=== PATIENT | female | born 1985 | race African-American/Black ===

== ENCOUNTER 2016-12-10 02:57 | Inpatient (IN) | payer SELFPAY ==
[~2016-12-10] VITALS: Ht 167.6 cm; Wt 66.5 kg
--- NOTE | 2016-12-10 03:00 | NUR ---
PT BIBA#39. Pt found wondering the streets acting bizzare. pt is slurring her words, no trauma noted, pt is not speaking purposeful sentences at this time. no distress noted. pt gowned, palced on cardiac cath rn. skin warm and dry, rr even an dunalbored. awaiting orders from provider, will continue to monitor
--- NOTE | 2016-12-10 03:05 | NUR ---
MD Merrill at bed side for eval
--- NOTE | 2016-12-10 03:10 | NUR ---
in and out deidre do per order md cruz
[2016-12-10] MEDS ORDERED: IV SET PRIMARY 1 EA INFUS.SET MC ONE (03:25)
[2016-12-10] MEDS ORDERED: IV NS 0.9% 1,000 ML ONE (03:25)
[2016-12-10] MEDS ORDERED: IV NS 0.9% 1,000 ML BAG IV ONE (03:30)
[2016-12-10 03:31] LABS: BASOPHILS % (AUTO) 0.4 % (0.0-2.0); EOSINOPHILS # (AUTO) 0.1 /CMM (0.0-0.7); EOSINOPHILS % (AUTO) 1.2 % (0.0-6.0); HEMATOCRIT 36 % (33-45); HEMOGLOBIN 11.7 g/dL (11.5-14.8); LYMPHOCYTES # (AUTO) 1.4 /CMM (0.8-4.8); LYMPHOCYTES % (AUTO) 27.5 % (20.0-44.0); MEAN CORPUSCULAR HEMOGLOBIN 28 PG (26.0-33.0); MEAN CORPUSCULAR HGB CONC 33 g/dl (31.0-36.0); MEAN CORPUSCULAR VOLUME 86 fL (82-100); MONOCYTES # (AUTO) 0.6 /CMM (0.1-1.30); MONOCYTES % (AUTO) 12.5 % (2.0-12.0); NEUTROPHILS # (AUTO) 2.9 /CMM (1.8-8.9); NEUTROPHILS % (AUTO) 58.4 % (43.0-81.0); PLATELET COUNT (AUTO) 241 /CMM (150-450); RDW COEFFICIENT OF VARIATION 16.1 (11.5-15.0); RED BLOOD CELL COUNT(AUTO) 4.16 MIL/uL (4.0-5.2); WHITE BLOOD COUNT (AUTO) 4.9 K/uL (4.3-11.0)
[2016-12-10 03:35] LABS: APPEARANCE,URINE CLOUDY (CLEAR); BILIRUBIN,URINE NEGATIVE (NEGATIVE); BLOOD, URINE TRACE-INTA Ery/uL (NEGATIVE); COLOR,URINE YELLOW (YELLOW); KETONES,URINE NEGATIVE (NEGATIVE); LEUKOCYTE ESTERASE ,URINE NEGATIVE (NEGATIVE); NITRITE, URINE NEGATIVE (NEGATIVE); PH,URINE 6.5 (5.0-8.0); PROTEIN,URINE NEGATIVE (NEGATIVE); UGLUCOSE NEGATIVE (NEGATIVE); UROBILINOGEN,URINE 0.2 EU/dL (0.2)
[2016-12-10 03:43] LABS: BACTERIA,URINE 1+ /HPF (None Seen); SQUAMOUS EPITHELIAL CELL,UR Many /HPF (None Seen); URINE AMORPHOUS URATE Moderate /HPF (None Seen); WBC,URINE 0-2 /HPF (0-3)
[2016-12-10 03:51] LABS: INR 1.09 (0.87-1.13); PROTHROMBIN TIME 11.7 SECS (9.5-12.7)
--- NOTE | 2016-12-10 03:54 | NUR ---
pt resting in er bed, nad noted, skin warm and dry. pt is on sed special education teacher. will continue to monitor
[2016-12-10 04:02] LABS: ALANINE AMINOTRANSFERASE 29 U/L (12-78); ALBUMIN 3.4 g/dL (3.4-5.0); ALCOHOL, BLOOD < 3 mg/dL (0-0); ALKALINE PHOSPHATASE 60 U/L (46-116); ASPARTATE AMINOTRANSFERASE 36 U/L (15-37); BILIRUBIN,DIRECT 0.1 mg/dL (0.0-0.2); BILIRUBIN,TOTAL 0.3 mg/dL (0.2-1.0); CALCIUM, SERUM 8.4 mg/dL (8.5-10.1); CREATININE 0.9 mg/dL (0.6-1.3); GLUCOSE 127 mg/dL (74-106); SALICYLATE 5.2 mg/dL (2.8-20.0); UREA NITROGEN, BLOOD 4 mg/dL (7-18)
[2016-12-10 04:15] LABS: CARBON DIOXIDE 28 mmol/L (21-32); CHLORIDE 108 mmol/L (98-107); POTASSIUM 3.4 mmol/L (3.5-5.1); SODIUM SERUM 147 mmol/L (136-145)
[2016-12-10 04:16] LABS: ACETAMINOPHEN 0 ug/ml (10-30)
--- NOTE | 2016-12-10 06:10 | NUR ---
pt resting in er bed, nad noted, skin warm and dry. pt is on awake overnight monitor. will continue to monitor
--- NOTE | 2016-12-10 07:40 | NUR ---
Patient is resting comfortably in bed with eyes closed. Easily aroused. VSS
--- NOTE | 2016-12-10 10:00 | NUR ---
Patient is resting comfortably in bed with eyes closed. Easily aroused. VSS
--- NOTE | 2016-12-10 14:40 | NUR ---
CALLED NURSING SUP. FOR IW[facility] BED
--- NOTE | 2016-12-10 14:41 | NUR ---
RICO PAGED, INFRASTRUCTURE TECH
--- NOTE | 2016-12-10 15:16 | NUR ---
CALLED NURSING SUP. FOR TELE BED
--- NOTE | 2016-12-10 15:35 | NUR ---
PT TAKEN TO CT.
--- NOTE | 2016-12-10 16:32 | NUR ---
REPORT GIVEN TO FELA CARBAJAL FOR TELE ROOM- 327-1.
--- NOTE | 2016-12-10 17:00 | NUR ---
TELE/COMPUTER CONSULTANT PT. IS STANDING A&OX2-3. NO SOB, NO S/S OF ACUTE DISTRESS. PT. IS ON TELEMETRY LEADS APPLIED, TELE READING SINUS RHYTHM 87 BPM. LEFT ANTECUBITAL IV ACCESS PATENT. VITALS ARE WITHIN NORMAL LIMITS. BED IS IN LOW POSITION, 2 SIDE RAILS UP, AND CALL LIGHT WITHIN REACH.
--- NOTE | 2016-12-10 19:00 | NUR ---
TELE/RN NOTES PT. WAS IN BED DIFFICULT TO AROUSE. PT.'S BLOOD SUGAR 90 MG/DL, OXYGEN SATURATION 95%, BLOOD PRESSURE 121/74, PULSE 84 BPM, RESPIRATION 18, TEMP. 97.9 F. CALLED TO NOTIFY MD ABOUT PT.'S CHANGE IN CONDITION. MD ORDERED TO PUT BED IN 45 DEGREE ANGLE AND TO WAKE PT. UP. PER MD THIS IS POSSIBLE TO AN AMPHETAMINE CRASH. MD ASKED TO CALL BACK TO REPORT ON PT. RESPONSE.
[2016-12-10] MEDS ORDERED: ZOLPIDEM TARTRATE 5 MG TABLET PO PRN (19:30)
[2016-12-10] MEDS ORDERED: ONDANSETRON HCL/PF 4 MG/2 ML VIAL IVP PRN (19:30)
[2016-12-10] MEDS ORDERED: Z GUARD REMEDY 2 OZ OINT TP PRN (19:30)
[2016-12-10] MEDS ORDERED: MAG HYDROX/AL HYDROX/SIMETH 30 ML UDC PO PRN (19:30)
[2016-12-10] MEDS ORDERED: ACETAMINOPHEN 325 MG TABLET PO PRN (19:30)
--- NOTE | 2016-12-10 19:30 | NUR ---
TELE/RN NOTES PT. CONDITION HAS NOT CHANGED, AND VITAL SIGNS ARE WITHIN NORMAL LIMITS. PT. TELE READING IS NORMAL SINUS RHYTHM 87 BPM. CALLED MD BACK. MD COULD NOT ANSWER, AND WILL CALL BACK.
--- NOTE | 2016-12-10 19:30 | NUR ---
TELE/RN CLOSING NOTES PT. IS IN BED SLEEPING, AND DIFFICULT TO AROUSE. PT. OPENS EYES SPONTANEOUSLY TO NAME, AND STERNAL RUB. NO SOB, OXYGEN SATURATION 95%. NO S/S OF ACUTE DISTRESS. TELE READING SINUS RHYTHM 69 BPM. VITAL SIGNS WITHIN NORMAL LIMITS. PT. HAS LINEAR SCABS, AND SCRATCH JEFFRIES ON RIGHT AND LEFT FOREARMS. LEFT ANTECUBITAL IV SITE IS PATENT AND INTACT. BED IS IN LOW POSITION, 2 SIDE RAILS UP, AND CALL LIGHT WITHIN REACH. WILL ENDORSE REPORT TO PRINTING ENGINEER NURSE.
--- NOTE | 2016-12-10 19:45 | NUR ---
GLUING MACHINE FEEDER NOTE RECEIVED PATIENT FROM DAY SHIFT, PATIENT IS ALERT AND LOOKS DROWSY DUE TO AMPHETAMINE OVERDOSE, NO S/S OF RESPIRATORY DISTRESS OR FACIAL GRIMACE NOTED. IV ON LEFT FA IS PATENT AND INTACT, WAITING FOR A FLUID ORDER. PAGED DR. VALDEZ ABOUT PATIENT'S CONDITION, WAITING FOR A RESPOND. TELE MONITOR SR 80. SRX2, BED IN LOW POSITION, CALL LIGHT WITHIN REACH, WILL CONTINUE TO MONITOR PATIENT.
[2016-12-10 20:00] VITALS: BP 126/81
--- NOTE | 2016-12-10 20:20 | NUR ---
SPRAY BOOTH OPERATOR NOTE PAGED DR. VALDEZ AGAIN TO NOTIFY CHANGE OF CONDITION AND GET A FLUID ORDER. HE STATED THAT HE'S GOING TO COME UP AND ASSESS THE PATIENT. NO ORDERS RECEIVED AT THIS TIME.
--- NOTE | 2016-12-10 21:10 | NUR ---
RAILWAY SIGNALLING ENGINEER NOTE DR. VALDEZ SAW THE PATIENT, ORDERED D51/2NS WITH 20MEQ KCL @100ML/HR. HE STATED HE'LL PUT THE ORDER IN.
[2016-12-10] MEDS ORDERED: IV SET PRIMARY PUMP SET 1 EA INFUS.SET MC ONE (21:42)
[2016-12-10] MEDS ORDERED: IV PREMIX D5 1/2NS + KCL 1,000 ML IV ONE (22:37)
[2016-12-10] MEDS: Potassium Chloride 20 MEQ in IV D5/0.45 NACL 1,000 ML IV PRN (22:50)
[2016-12-11] VITALS: BP 114/64
[2016-12-11 04:00] VITALS: BP 112/69
--- NOTE | 2016-12-11 06:43 | NUR ---
PROPELLER TESTER NOTE PATIENT IS SLEEPING IN BED COMFORTABLY, SHE IS MORE ALERT THAN LAST NIGHT, ABLE TO TALK WITH THE STAFF. IV ON LEFT AC IS PATENT AND INTACT, FLUID IS RUNNING. TELE MONITOR SR 92. WILL ENDORSE TO DAY SHIFT NURSE FOR MAKENNA.
[2016-12-11 06:45] VITALS: BP 107/67
[2016-12-11] MEDS: PANTOPRAZOLE 40 MG TABLET.DR PO SCH (07:30)
[2016-12-11 07:56] LABS: BASOPHILS % (AUTO) 0.2 % (0.0-2.0); EOSINOPHILS # (AUTO) 0.1 /CMM (0.0-0.7); EOSINOPHILS % (AUTO) 1.4 % (0.0-6.0); HEMATOCRIT 33 % (33-45); HEMOGLOBIN 10.7 g/dL (11.5-14.8); LYMPHOCYTES # (AUTO) 1.4 /CMM (0.8-4.8); LYMPHOCYTES % (AUTO) 28.3 % (20.0-44.0); MEAN CORPUSCULAR HEMOGLOBIN 28 PG (26.0-33.0); MEAN CORPUSCULAR HGB CONC 33 g/dl (31.0-36.0); MEAN CORPUSCULAR VOLUME 87 fL (82-100); MONOCYTES # (AUTO) 0.5 /CMM (0.1-1.30); MONOCYTES % (AUTO) 10.9 % (2.0-12.0); NEUTROPHILS % (AUTO) 59.2 % (43.0-81.0); PLATELET COUNT (AUTO) 183 /CMM (150-450); RDW COEFFICIENT OF VARIATION 16.2 (11.5-15.0); RED BLOOD CELL COUNT(AUTO) 3.76 MIL/uL (4.0-5.2); WHITE BLOOD COUNT (AUTO) 5.1 K/uL (4.3-11.0)
[2016-12-11 08:22] LABS: CALCIUM, SERUM 7.9 mg/dL (8.5-10.1); CREATININE 0.8 mg/dL (0.6-1.3); MAGNESIUM 1.5 mg/dL (1.8-2.4); PHOSPHORUS 2.8 mg/dL (2.5-4.9); POTASSIUM 3.7 mmol/L (3.5-5.1)
[2016-12-11] MEDS: Potassium Chloride 20 MEQ in IV D5/0.45 NACL 1,000 ML IV PRN ×2 (09:36→23:20)
--- NOTE | 2016-12-11 09:56 | NUR ---
WOOL PULLER NOTES MORNING MEDS HELD,PATIENT LETHARGIC, ABLE TO AROUSE.
[2016-12-11] MEDS ORDERED: SECONDARY IV SET 1 EA INFUS.SET MC ONE (11:45)
[2016-12-11] MEDS: Magnesium 1GM/D5W 100ML PREMIX 100 ML IV SCH ×2 (11:52→13:19)
[2016-12-11 12:00] VITALS: BP 104/68
[2016-12-11] MEDS: OLANZAPINE 5 MG TABLET PO SCH (15:30)
[2016-12-11] MEDS: FLUOXETINE HCL 20 MG CAPSULE PO SCH (15:30)
[2016-12-11 16:08] VITALS: BP 114/71
--- NOTE | 2016-12-11 16:35 | NUR ---
VALVE SEATER OPERATOR NOTES PROZAC AND OLANZAPINE HELD. PATIENT IS SLEEPING.
--- NOTE | 2016-12-11 18:49 | NUR ---
RN MS CLOSING NOTES PATIENT IN BED, VERBALLY RESPONSIVE, PATIENT IS MORE AWAKE, DOSES OFF INTERMITTENTLY. NO APPARENT DISTRESS NOTED. IV LINE ON LEFT AC PATENT INFUSING D5 1/2 NS 20MEQ KCL AT 125ML/HR. ALL DUE MEDS GIVEN ALL NEEDS MET. WILL ENDORSE CARE TO PM SHIFT.
--- NOTE | 2016-12-11 19:00 | NUR ---
DIRECTOR POWER INITIAL NOTE PT RECEIVED IN BED, NO S/S OF RESPIRATORY DISTRESS OR SOB. IV SITE INTACT WITH NO S/S OF INFILTRATION NOTED. SAFE ENVIRONMENT PROVIDED FREE OF CLUTTERS .BED IN LOCKED, LOW POSITION. CALL LIGHT WITHIN EASY REACH. WILL CONTINUE TO MONITOR.
[2016-12-11 20:00] VITALS: BP 107/62
[2016-12-12] VITALS: BP 104/68
[2016-12-12 04:00] VITALS: BP 110/59
--- NOTE | 2016-12-12 06:27 | NUR ---
WASTE AND BATTING WASTE CHOPPER CLOSING NOTES PATIENT COMFORTABLY IN BED ASLEEP AND EASILY AWAKEN, ALERT AND VERBALLY X 2 RESPONSIVE DENIES PAIN OR DISTRESS, TOLERATING ROOM AIR 02 SAT 98% ATTACH TO PARTS IDENTIFICATION TECHNICIAN SR 75'S. RESPONDS APPROPRIATELY TO VERBAL STIMULI, RESPIRATIONS EVEN UNLABORED BREATH SOUNDS. APICAL PULSE REGULAR; GOOD SKIN CARE PROVIDED. PATIENT IN STABLE CONDITION WITH NO SOB NO S/S OF DISTRESS NO NAUSEA AND VOMITING NO HEADACHE NO PAIN, NO COMPLAIN OF CHEST PAIN SAFETY ENVIRONMENT PROVIDED. FREE OF CLUTTERS, SAFE HAZARD FREE ENVIRONMENT. NEEDS ATTENDED AND ANTICIPATED, NURSING CARE RENDERED, KEPT CLEAN AND DRY AND COMFORTABLE. IV AT LAC D5 1/2 NS 20 MEQ KCL 125 MLS/HR RUNNING AND TOLERATED WELL. IV SITE INTACT WITH NO S/S OF INFILTRATION NOTED. CALL LIGHT IN REACH, BED LOWERED AND LOCKED, SR X2 FOR SAFETY AND WILL ENDORSE CONTINUE PLAN OF CARE.
[2016-12-12 07:24] LABS: CALCIUM, SERUM 7.9 mg/dL (8.5-10.1); CREATININE 0.7 mg/dL (0.6-1.3); MAGNESIUM 1.7 mg/dL (1.8-2.4); POTASSIUM 3.9 mmol/L (3.5-5.1)
--- NOTE | 2016-12-12 07:30 | NUR ---
RECEIVED PT. IN AM ALERT AND ORIENTED X4.NO COPLAINTS,VERY GROGGY.VS STABLE.
[2016-12-12 08:00] VITALS: BP 109/63
--- NOTE | 2016-12-12 10:30 | NUR ---
AM MEDS GIVEN LATE DUE TO SLEEPINESS.
[2016-12-12] MEDS: Magnesium 1GM/D5W 100ML PREMIX 100 ML IV SCH ×2 (11:03→12:23)
[2016-12-12] MEDS: FLUOXETINE HCL 20 MG CAPSULE PO SCH (11:57)
[2016-12-12] MEDS: OLANZAPINE 5 MG TABLET PO SCH (11:57)
[2016-12-12] MEDS: PANTOPRAZOLE 40 MG TABLET.DR PO SCH (11:57)
[2016-12-12 12:00] VITALS: BP 109/63
--- NOTE | 2016-12-12 12:30 | NUR ---
DR. GRIMES IN WITH PLANS TO DC PT. TODAY.
[2016-12-12 16:00] VITALS: BP 101/59
[2016-12-12] MEDS ORDERED: FLUO-120 PO (16:47)
[2016-12-12] MEDS ORDERED: OLAN5TAB3 PO (16:47)
--- NOTE | 2016-12-12 17:30 | NUR ---
REFUSED DISCHARGE PHOTOS OF SCRATCHES ON ARMS.
--- NOTE | 2016-12-12 18:10 | NUR ---
PT. STATES LOST CELL PHONE IN ER,RN CALLED BOTH ER DEPT. AND CAT SCANNING RM. TO NO AVAIL. CELLPHONE NOT LISTED ON BELONGING SHEET.WAXER OPERATOR INFORMED.ALL DC INSTRUCTIONS GIVEN,HEP LOCK OUT AND RX GIVEN TO PT. WITH EXPLANATION.TAKEN TO LOBBY VIA W/C TO BE PICKED UP BY CAB.
== END 2016-12-12 18:14 | disposition home or self-care (01) | DRG 917 ==
LOC: ER 03:02 → TELE 15:58
PROVIDERS: ADMIT Nurse Practitioner Acute Care; ATTEND Nurse Practitioner Acute Care
DX: T40.4X1A Poisoning by other synthetic narcotics, accidental (unintentional), initial encounter (principal); G92 Toxic encephalopathy; Y92.89 Other specified places as the place of occurrence of the external cause; F15.10 Other stimulant abuse, uncomplicated; F25.9 Schizoaffective disorder, unspecified
CPT/HCPCS: 36415; 70450-TC; 80048-TC; 80061-TC; 80076-TC; 80305; 81000-TC; 82962-TC; 83735-TC; 84100-TC; 84703-TC; 85025-TC; 85730-TC; 87081-TC; 87086-TC; A4606; G0480; J3475; J3480; J3490; J7030; Z7610